=== PATIENT | male | born 1965 | race Caucasian/White ===

== ENCOUNTER → 2019-08-12 14:21 | Outpatient (BNVA) | payer BC, SELFPAY | PROVIDERS: Family Provider Family Medicine; PCP Family Medicine; Visit Provider Nurse Practitioner Family | DX: I10 Essential (primary) hypertension (principal); E11.9 Type 2 diabetes mellitus without complications | CPT/HCPCS: 80053; 80061; 83036; 83721; 84439; 84443 ==

== ENCOUNTER → 2019-10-26 11:45 | Outpatient (BNVA) | payer BC, SELFPAY | PROVIDERS: Family Provider Family Medicine; PCP Family Medicine; Visit Provider Nurse Practitioner Family | DX: E11.9 Type 2 diabetes mellitus without complications (principal); R74.8 Abnormal levels of other serum enzymes | CPT/HCPCS: 80053; 83036; 85025 ==

== ENCOUNTER → 2020-02-23 07:35 | Outpatient (BNVA) | payer BC, SELFPAY | PROVIDERS: Family Provider Family Medicine; PCP Family Medicine; Visit Provider Nurse Practitioner Family | DX: I10 Essential (primary) hypertension (principal); N52.9 Male erectile dysfunction, unspecified; Z68.27 Body mass index [BMI] 27.0-27.9, adult | CPT/HCPCS: 80053; 80061; 84403; G0103 ==

== ENCOUNTER → 2020-04-14 09:46 | Outpatient (BNVA) | payer BC, SELFPAY | PROVIDERS: Family Provider Family Medicine; PCP Family Medicine; Visit Provider Nurse Practitioner Family | DX: E11.65 Type 2 diabetes mellitus with hyperglycemia (principal); I10 Essential (primary) hypertension; G62.9 Polyneuropathy, unspecified; R03.0 Elevated blood-pressure reading, without diagnosis of hypertension; Z68.27 Body mass index [BMI] 27.0-27.9, adult; Z79.4 Long term (current) use of insulin | CPT/HCPCS: 83036 ==

== ENCOUNTER → 2021-02-03 10:51 | Outpatient (BNVA) | payer BC, SELFPAY | PROVIDERS: Family Provider Family Medicine; PCP Family Medicine; Visit Provider Internal Medicine Gastroenterology | DX: K70.30 Alcoholic cirrhosis of liver without ascites (principal); R79.89 Other specified abnormal findings of blood chemistry; E11.65 Type 2 diabetes mellitus with hyperglycemia; Z79.4 Long term (current) use of insulin | CPT/HCPCS: 80053; 82105; 83036; 85025; 85610 ==

== ENCOUNTER → 2021-09-26 14:47 | Outpatient (BNVA) | payer BC, SELFPAY | PROVIDERS: Family Provider Family Medicine; PCP Family Medicine; Visit Provider Nurse Practitioner Family | DX: E11.9 Type 2 diabetes mellitus without complications (principal); Z79.4 Long term (current) use of insulin | CPT/HCPCS: 83036 ==

== ENCOUNTER → 2021-10-10 09:52 | Outpatient (BNVA) | payer BC, SELFPAY | PROVIDERS: Family Provider Family Medicine; PCP Family Medicine; Visit Provider Nurse Practitioner Family | DX: E11.65 Type 2 diabetes mellitus with hyperglycemia (principal); Z79.4 Long term (current) use of insulin; I10 Essential (primary) hypertension | CPT/HCPCS: 80053; 80061; 83036 ==

== ENCOUNTER → 2022-01-09 09:26 | Outpatient (BNVA) | payer BC, SELFPAY | PROVIDERS: Family Provider Family Medicine; PCP Family Medicine; Visit Provider Nurse Practitioner Family | DX: E11.9 Type 2 diabetes mellitus without complications (principal) | CPT/HCPCS: 83036 ==

== ENCOUNTER → 2022-05-08 08:33 | Outpatient (BNVA) | payer BC, SELFPAY | PROVIDERS: Family Provider Family Medicine; PCP Family Medicine; Visit Provider Family Medicine | DX: E11.9 Type 2 diabetes mellitus without complications (principal); I10 Essential (primary) hypertension | CPT/HCPCS: 80053; 80061; 83036 ==

== ENCOUNTER 2022-08-19 04:11 | Emergency (ER) | payer BC, SELFPAY ==
[2022-08-19 04:20] VITALS: BP 130/84; PULSE 79; RESP 18; TEMP 36.4; O2SAT 98; BMI 29.0
--- NOTE | 2022-08-19 04:30 | XRR_ITS ---
PROCEDURE INFORMATION: Exam: XR Right Ribs Exam date and time: 08/19/2022 4:54 AM Age: 56 years old Clinical indication: Injury or trauma; Fall; Rib area; Blunt trauma (contusions or hematomas) TECHNIQUE: Imaging protocol: Radiologic exam of the right ribs. Views: 2 views. Total images: 2 COMPARISON: No relevant prior studies available. FINDINGS: Bones/joints: No acute fracture nor subluxation. No osseous erosion nor periosteal reaction. Heart/Mediastinum: Upper normal heart size noted. Soft tissues: Normal. XR/XR ribs RT 2V* [id number] IMPRESSION: 1. No acute cardiopulmonary process. 2. No acute osseous pathology.
--- NOTE | 2022-08-19 04:51 | ED_ITS ---
HPI - Fall General: Chief Complaint: Fall Stated Complaint: fall, right rib pain Time Seen by Provider: 08/19/22 04:13 Source: patient Mode of arrival: ambulatory Limitations: no limitations History of Present Illness: 56-year-old male who slipped on some leaves this morning, and landed on a root blood on his right side. He complains of right sided lateral mid chest wall pain and swelling. He has increased pain with coughing, laughing, and breathing deep. No vomiting. No belly pain. No overt shortness of breath. MD complaint: fall Onset (ago): minute(s) Fall from: standing Fall witnessed: yes, by family Place fall occurred: other Loss of consciousness: None Prolonged down time: no Symptoms prior to fall: none Context: tripped/slipped (on leaves) Location of injury: chest (right ribs) Quality: sharp and stabbing Associated symptoms-after fall: Reports chest pain; Denies abdominal pain, confusion, difficulty walking, headache(s), lightheadedness or short of breath Review of Systems Card: Reports: chest pain; Denies: lightheadedness GI: Denies: abdominal pain Neuro: Denies: headache(s), difficulty walking or confusion PFS ED PFSH: Medical History (Updated 08/19/22 @ 06:33 by Tuan Valenzuela DO) Alcoholic Depression Diabetes Elevated liver enzymes Essential hypertension History of LA (myocardial infarction) Social History Smoking and tobacco status: current every day smoker cigarettes Packs smoked per day: 1 Alcohol intake: current Alcohol type: hard liquor Physical Exam Const: COMMON NORMALS: no acute distress GENERAL APPEARANCE: cooperative; not ill appearing HENMT: COMMON NORMALS: normocephalic, atraumatic and Normal external nose present HEAD & SCALP: normocephalic and atraumatic FACE & SINUS: normal facial exam and face symmetric NOSE: Normal external nose present Eye: COMMON NORMALS: Equal, round and reactive pupils present and EOMs intact bilaterally PUPIL: Yes Equal, round and reactive pupils present Neck/C-Spine: GENERAL: Yes trachea midline Chest: CHEST: Yes Symmetrical chest wall rise, No crepitus and Yes tenderness (right mid lateral chest wall tenderness) rib Resp: COMMON NORMALS: normal respiratory effort and clear to auscultation bilaterally EFFORT & INSPECTION: No tachypneic and No paradoxical thoraco- abdominal movements AUSCULTATION: clear to auscultation bilaterally, no rales and no rhonchi Cardio: COMMON NORMALS: regular rate and regular rhythm RATE: regular rate RHYTHM: regular rhythm GI: COMMON NORMALS: Normal to inspection, nondistended, normoactive bowel sounds present, Soft to palpation and non-tender PALPATION: Yes Soft to palpation Extremity: COMMON NORMALS: no pedal edema Neuro: SIDNEY COMA SCALE: document GCS findings [place] coma scale eye opening: Spontaneous [place] coma scale verbal response: Orientated [place] coma scale motor response: Obey commands [place] coma scale total score: 15 Psych: COMMON NORMALS: mental status grossly normal and cooperative Course Vital Signs: Vital signs: Vital Signs Temperature 97.5 F L 08/19/22 04:20 Pulse Rate 74 08/19/22 06:47 Respiratory Rate 18 08/19/22 06:47 Blood Pressure 153/89 08/19/22 06:47 Pulse Oximetry 98 08/19/22 06:47 Oxygen Delivery Me thod 08/19/22 06:34 MDM - Fall Medical Decision Making 56 year old male with right sided chest wall contusion/injury. vitals are good. he is oxygenating well. He is experiencing no abdominal tenderness. There is no distenion. X-ray shows no definite rib fracture. No name of thorax. No pulmon teddy contusion. He'll be allowed home. Pain control period close outpatient follow up. He knows to return for worsening symptoms Lab Data Radiology Impressions Ribs X-Ray 08/19/22 04:30 IMPRESSION: 1. No acute cardiopulmonary process. 2. No acute osseous pathology. Discharge Plan Discharge Patient Disposition: Home Clinical Impression: Chest wall contusion Condition: Stable Prescriptions: New Percocet 7.5-325 mg tablet 1 tab PO Q6H PRN (Reason: pain) Qty: 10 0RF No Action glipizide 5 mg tablet 5 mg PO DAILY Qty: 90 3RF Breztri Aerosphere 160-9-4.8 mcg/actuation HFA aerosol inhaler 2 inh inhalation BID Qty: 10.7 11RF albuterol sulfate 90 mcg/actuation HFA aerosol inhaler 2 inh inhalation Q4H Qty: 8.5 3RF carvedilol 3.125 mg tablet 3.125 mg PO BID Qty: 180 0RF Rx Instructions: must administer with a meal/food pantoprazole 40 mg tablet,delayed release (DR/EC) 40 mg PO DAILY Qty: 90 1RF Aquaphor Healing 41 % ointment 1 applic topical BID Qty: 396 0RF (DME) blood-glucose meter Kit See Rx Instructions .ROUTE .MEDSUPPLY Qty: 1 0RF Rx Instructions: once daily metformin 1,000 mg tablet 1,000 mg PO BID Qty: 180 0RF Ozempic 0.25 mg or 0.5 mg(2 mg/1.5 mL) pen injector 0.5 mg SUBCUT .weekly 30 Days Qty: 1.5 11RF sildenafil 50 mg tablet 50 mg PO DAILY PRN (Reason: sexual activity) Qty: 30 5RF Rx Instructions: administer 30 minutes to 4 hours before activity Discharge Orders: Discharge ED (Routine); Ordered 08/19/22 Ordered By: Tuan Valenzuela Referrals: Holly Diane, HOSPITAL [facility]AN[facility] SPECIALIST [Primary Care Provider] - 4-7 days Patient Instructions: Rib Contusion (ED), Opioid Safety, Pain Management Activity Restrictions/Additional Instructions: Return for worsening pain despite treatment, shortness of breath, fever, worsening cough, other concerning symptoms. Use pain medication sparingly. Use the incentive spirometer you were given every hour while awake. Follow-up with your doctor next week. Stand Alone Forms: Work/School Release Coding Level of Care Code ED [employer] Installer for Nader Gomez
[2022-08-19 05:44] VITALS: BP 152/83; O2SAT 94
[2022-08-19 05:45] VITALS: BP 148/95; RESP 18
[2022-08-19] MEDS: HYDROmorphone 1 mg/mL INJ 1 mL IM (05:45)
[2022-08-19] MEDS: ondansetron 2 mg/ML SDV 2 mL 4 MG PO (05:50)
[2022-08-19 06:34] VITALS: BP 146/82; PULSE 69; RESP 18; O2SAT 98
[2022-08-19 06:35] VITALS: RESP 18
[2022-08-19] MEDS: oxyCODONE-APAP 5-325 mg Tablet 1 TAB PO (06:35)
[2022-08-19 06:47] VITALS: BP 153/89; PULSE 74; RESP 18; O2SAT 98
== END 2022-08-19 06:50 | disposition home or self-care (01) ==
PROVIDERS: Emergency Provider Emergency Medicine; PCP Nurse Practitioner Family
DX: S20.211A Contusion of right front wall of thorax, initial encounter (principal); Z79.84 Long term (current) use of oral hypoglycemic drugs; E11.9 Type 2 diabetes mellitus without complications; I10 Essential (primary) hypertension; I25.2 Old myocardial infarction; F17.210 Nicotine dependence, cigarettes, uncomplicated; W01.198A Fall on same level from slipping, tripping and stumbling with subsequent striking against other object, initial encounter
CPT/HCPCS: 71100; 96372; 99284; J1170; J2405

== ENCOUNTER → 2023-08-23 10:18 | Outpatient (BNVA) | payer BC, SELFPAY | PROVIDERS: PCP Nurse Practitioner Family; Visit Provider Nurse Practitioner Family | DX: I10 Essential (primary) hypertension (principal); E11.65 Type 2 diabetes mellitus with hyperglycemia; Z79.4 Long term (current) use of insulin; J44.9 Chronic obstructive pulmonary disease, unspecified | CPT/HCPCS: 80053; 80061; 83036; 83880 ==